=== PATIENT | female | born 1985 | race Two or more races ===

== ENCOUNTER 2019-09-19 12:50 | Emergency (ER) | payer MEDICAID ==
[~2019-09-19] VITALS: Ht 162.6 cm; Wt 83.9 kg
[2019-09-19 13:08] VITALS: BP 115/84
[2019-09-19] MEDS ORDERED: KETOROLAC TROMETH 60MG/2ML VIAL IM ONE (15:00)
== END 2019-09-19 15:23 | disposition home or self-care (01) ==
LOC: ER 12:50
DX: G44.209 Tension-type headache, unspecified, not intractable (principal)
CPT/HCPCS: 70450; 96372; 99284; J1885

== ENCOUNTER 2019-10-03 12:53 | Emergency (ER) | payer MEDICAID ==
[~2019-10-03] VITALS: Ht 165.1 cm; Wt 85.7 kg
[2019-10-03 13:28] VITALS: BP 118/82
== END 2019-10-03 15:05 | disposition home or self-care (01) ==
LOC: ER 12:53
DX: J18.9 Pneumonia, unspecified organism (principal)
CPT/HCPCS: 71045